=== PATIENT | male | born 1925 | race Caucasian/White ===

== ENCOUNTER 2016-05-03 09:26 | Day surgery (SDC) | payer OTHER, BC ==
[~2016-05-03] VITALS: Ht 185.4 cm; Wt 77.1 kg
[~2016-05-03 09:26] MED LIST: AMLODIPINE BESY10 MG PO; CILOSTAZOL50 MG PO; DIOVAN80 MG PO; DOCUSATE SODIU100 MG PO; ENDOCET 5-3251 EACH PO; FUROSEMIDE40 MG PO; HYDROCODON-ACE1 EAC7 PO; HYDROXYUREA500 MG PO; ISOSORBIDE MONO30 MG PO; LO-DOSE ASPIRIN81 M1 PO; METOPROLOL SUCC25 MG PO; PLETAL100 MG PO; PROMETHAZINE HC25 M1 PO; SSD25GM TP; TYLENOL REGULA325 MG PO; VANCOMYCIN1.25 GM/25 IV; VIBRAMYCIN100 MG PO; VITAMIN B-12500 MC3 PO; XARELTO15 MG PO
== END 2016-05-03 17:25 | disposition home or self-care (01) ==
LOC: CATH 09:26 → EDBD 11:00 → CATH 17:25
DX: I70.248 Atherosclerosis of native arteries of left leg with ulceration of other part of lower leg (principal); L97.829 Non-pressure chronic ulcer of other part of left lower leg with unspecified severity; I70.92 Chronic total occlusion of artery of the extremities; I10 Essential (primary) hypertension; M19.90 Unspecified osteoarthritis, unspecified site; I25.10 Atherosclerotic heart disease of native coronary artery without angina pectoris
CPT/HCPCS: C1725; C1760; C1769; C1874; C1887; C1894; J1200; J1644; J2250; J3010; S0020

== ENCOUNTER 2016-05-19 07:01 | Observation (INO) | payer OTHER, BC ==
[2016-05-19] VITALS (10 sets, daily range): BP systolic 141–170; BP diastolic 62–75
[~2016-05-19] VITALS: Ht 185.4 cm; Wt 73.0 kg
[~2016-05-19 07:01] MED LIST changes: +BACTRIM,SEPT1 TABLET PO; +CYANOCOBALAM1000 MCG PO; +TOPROL XL25 MG PO
[2016-05-19 09:56] LABS: METH RESISTANT S AUREUS PCR NEGATIVE (NEGATIVE)
[2016-05-19 09:58] LABS: PROBE CHECK PASS; SPECIMEN PROCESSING CONTROL PASS
[2016-05-19 12:55] LABS: HEMATOCRIT 28.2 % (38.0-50.0); MCH 26.8 PG (29.0-34.0); MCHC 29.8 G/DL (30.0-36.0); MCV 90.1 FL (86-99); MEAN PLAT.VOLUME 9.2 uM^3 (9.0-12.4); RBC DIS.WIDTH-CV 15.3 % (11.8-14.6); RBC DIS.WIDTH-SD 50.1 % (39-53); RED BLOOD COUNT 3.13 M/uL (4.00-5.50); WHITE BLOOD COUNT 13.7 K/uL (4.1-10.2)
[2016-05-19 13:07] LABS: PLATELET COUNT 257 K/uL (156-360)
[2016-05-19 13:44] LABS: TROP-I INTERPRETATION NEGATIVE; TROPONIN-I 0.02 ng/mL (0.0-0.30)
[2016-05-19 13:48] LABS: ANION GAP 9 MEQ/L (2-14); CHLORIDE 103 MEQ/L (99-109); GFR ESTIMATE (CALCULATED) 55 mL/min/; GLUCOSE 109 mg/dL (70-99); POTASSIUM 4.4 MEQ/L (3.7-5.4); SAMPLE HEMOLYSIS CHECK 0; SAMPLE ICTERIC CHECK 0; SAMPLE LIPEMIA CHECK 0; SODIUM 137 MEQ/L (136-147); UREA NITROGEN (BUN) 29 mg/dL (9-23)
[2016-05-19 17:12] LABS: METH RESISTANT S AUREUS PCR POSITIVE (NEGATIVE)
[2016-05-19 17:30] LABS: PROBE CHECK PASS
[2016-05-20] VITALS: BP 128/56
[2016-05-20 02:00] VITALS: BP 129/57
[2016-05-20 04:00] VITALS: BP 146/59
[2016-05-20 05:32] LABS: TROP-I INTERPRETATION NEGATIVE; TROPONIN-I 0.03 ng/mL (0.0-0.30)
[2016-05-20 05:36] LABS: HEMATOCRIT 28.1 % (38.0-50.0); MCH 27.1 PG (29.0-34.0); MCHC 29.9 G/DL (30.0-36.0); MCV 90.6 FL (86-99); MEAN PLAT.VOLUME 9.5 uM^3 (9.0-12.4); PLATELET COUNT 257 K/uL (156-360); RBC DIS.WIDTH-CV 15.4 % (11.8-14.6); RBC DIS.WIDTH-SD 50.7 % (39-53); WHITE BLOOD COUNT 12.3 K/uL (4.1-10.2)
[2016-05-20 05:57] LABS: ANION GAP 9 MEQ/L (2-14); CHLORIDE 102 MEQ/L (99-109); GFR ESTIMATE (CALCULATED) 51 mL/min/; GLUCOSE 92 mg/dL (70-99); POTASSIUM 4.5 MEQ/L (3.7-5.4); SAMPLE HEMOLYSIS CHECK 0; SAMPLE ICTERIC CHECK 0; SAMPLE LIPEMIA CHECK 0; SODIUM 137 MEQ/L (136-147); UREA NITROGEN (BUN) 27 mg/dL (9-23)
[2016-05-20 08:00] VITALS: BP 148/68
[2016-05-20 12:00] VITALS: BP 150/59
== END 2016-05-20 14:20 | disposition home or self-care (01) ==
LOC: 2SOUTH 07:01 → 4WEST 07:01 → 2SOUTH 11:06 → 4WEST 15:09 → 2SOUTH 15:32 → 4WEST 05-20 14:20
PROVIDERS: Surgery
DX: I70.243 Atherosclerosis of native arteries of left leg with ulceration of ankle (principal); L97.324 Non-pressure chronic ulcer of left ankle with necrosis of bone; I70.211 Atherosclerosis of native arteries of extremities with intermittent claudication, right leg; I89.0 Lymphedema, not elsewhere classified; Z95.820 Peripheral vascular angioplasty status with implants and grafts; I25.10 Atherosclerotic heart disease of native coronary artery without angina pectoris; I25.2 Old myocardial infarction; I10 Essential (primary) hypertension; Z87.891 Personal history of nicotine dependence
CPT/HCPCS: 80048; 84484; 85027; 87641; 93005; C1768; C2628; G0378; G8978 GP CK; G8979 CJ; G8987 GO CM; G8988 GO CJ; J0690; J1644; J2250; J2720; J3010; J7120

== ENCOUNTER 2016-05-22 10:59 | Emergency (ER) | payer OTHER, BC ==
[~2016-05-22] VITALS: Ht 185.4 cm; Wt 77.1 kg
[2016-05-22 12:49] LABS: HEMATOCRIT 27.9 % (38.0-50.0); MCH 26.9 PG (29.0-34.0); MCHC 29.7 G/DL (30.0-36.0); MCV 90.6 FL (86-99); RBC DIS.WIDTH-CV 14.8 % (11.8-14.6); RBC DIS.WIDTH-SD 47.2 % (39-53); RED BLOOD COUNT 3.08 M/uL (4.00-5.50)
[2016-05-22 12:51] LABS: WHITE BLOOD COUNT 16.7 K/uL (4.1-10.2)
[2016-05-22] MEDS ORDERED: PERCOCET 5/31 TABLET PO (12:54)
[2016-05-22 12:57] LABS: CHLORIDE 105 mEq/L (99-109); POTASSIUM 4.6 mEq/L (3.7-5.4); SODIUM 137 mEq/L (136-147)
[2016-05-22 12:58] LABS: GLUCOSE 101 mg/dL (70-99)
[2016-05-22 13:00] LABS: ANION GAP 7 MEQ/L (2-14)
[2016-05-22 13:02] LABS: GFR ESTIMATE (CALCULATED) 38 mL/min/
[2016-05-22 13:03] LABS: UREA NITROGEN (BUN) 30 mg/dL (9-23)
[2016-05-22 13:28] VITALS: BP 143/67
[2016-05-22 13:47] LABS: DELETE MACHINE DIFF? YES
[2016-05-22 13:56] LABS: ABS NEUTROPHIL COUNT 14.83; ANISOCYTOSIS 1+; EOSINOPHIL ABS CT 0.33; MACROCYTES 1+; PLAT.SUFFICIENCY ADEQUATE; PLATELET COUNT UNABLE TO REPORT K/uL (156-360)
== END 2016-05-22 13:29 | disposition home or self-care (01) ==
LOC: EME → EDBD 10:59 → EME 13:29
PROVIDERS: Emergency Medicine
DX: I73.9 Peripheral vascular disease, unspecified (principal); Z87.891 Personal history of nicotine dependence
CPT/HCPCS: 80048; 85025; 93926; 99281; 99284

== ENCOUNTER → 2016-06-15 | Outpatient (CLI) | payer OTHER, BC ==
[~2016-06-15] MED LIST changes: +PERCOCET 5/31 TABLET PO
== END | disposition home or self-care (01) ==
LOC: PICC 08:56
DX: M86.172 Other acute osteomyelitis, left ankle and foot (principal)
CPT/HCPCS: 76937

== ENCOUNTER 2016-11-28 12:25 | Inpatient (IN) | payer OTHER, BC ==
[~2016-11-28] VITALS: Ht 185.4 cm; Wt 77.0 kg
[~2016-11-28 12:25] MED LIST changes: -AMLODIPINE BESY10 MG PO; +AMLODIPINE BESYL5 MG PO
[2016-11-28 13:27] LABS: BASOPHIL COUNT 0.1 K/uL (0-0.1); EOSINOPHIL (%) 1.2 % (0-5); EOSINOPHIL COUNT 0.2 K/uL (0-0.3); HEMATOCRIT 31.1 % (38.0-50.0); IMMATURE GRANULOCYTE (%) 0.7 % (0.0-0.7); IMMATURE GRANULOCYTE COUNT 0.1 K/uL; INSTRUMENT ABS NEUTROPHIL CT 13.8 K/uL; LYMPHOCYTE COUNT 0.9 K/uL (1.0-2.8); MCH 27.5 PG (29.0-34.0); MCHC 29.6 G/DL (30.0-36.0); MCV 93.1 FL (86-99); MEAN PLAT.VOLUME 9.8 uM^3 (9.0-12.4); MONOCYTE COUNT 0.6 K/uL (0-0.8); NEUTROPHIL COUNT 13.8 K/uL (1.8-6.4); PLATELET COUNT 424 K/uL (156-360); RBC DIS.WIDTH-SD 47.7 % (39-53); RED BLOOD COUNT 3.34 M/uL (4.00-5.50); WHITE BLOOD COUNT 15.7 K/uL (4.1-10.2)
[2016-11-28 13:40] LABS: CHLORIDE 104 mEq/L (99-109); SODIUM 137 mEq/L (136-147)
[2016-11-28 13:41] LABS: GLUCOSE 101 mg/dL (70-99)
[2016-11-28 13:43] LABS: ANION GAP 10 MEQ/L (2-14)
[2016-11-28 13:45] LABS: GFR ESTIMATE (CALCULATED) 38 mL/min/
[2016-11-28 13:46] LABS: UREA NITROGEN (BUN) 40 mg/dL (9-23)
[2016-11-28] MEDS ORDERED: HYSEPT TP (17:09)
[2016-11-28] MEDS ORDERED: BACTRIM,SEPT1 TABLET PO (17:10)
[2016-11-28] MEDS ORDERED: SYSTANE GEL10 GM BOTH EYES (17:10)
[2016-11-28] MEDS ORDERED: SYSTANE 0.3-0.1 EACH BOTH EYES (17:10)
[2016-11-28] MEDS ORDERED: COZAAR50 MG PO (17:10)
[2016-11-28] MEDS ORDERED: PLAVIX75 MG PO (17:10)
[2016-11-28 18:01] VITALS: BP 127/60
[2016-11-28 23:48] VITALS: BP 123/64
[2016-11-29 06:41] LABS: HEMATOCRIT 28.6 % (38.0-50.0); MCH 28.7 PG (29.0-34.0); MCHC 30.4 G/DL (30.0-36.0); MCV 94.4 FL (86-99); PLATELET COUNT 384 K/uL (156-360); RED BLOOD COUNT 3.03 M/uL (4.00-5.50); WHITE BLOOD COUNT 12.7 K/uL (4.1-10.2)
[2016-11-29 07:09] LABS: ANION GAP 7 MEQ/L (2-14); CHLORIDE 105 MEQ/L (99-109); GFR ESTIMATE (CALCULATED) 38 mL/min/; GLUCOSE 83 mg/dL (70-99); HDL CHOLESTEROL 51 MG/DL (Desirable>=40); LDL CHOLESTEROL 53 mg/dL (Desirable<100); NON-HDL CHOLESTEROL 64 mg/dL (Desirable<160); SAMPLE HEMOLYSIS CHECK 0; SAMPLE ICTERIC CHECK 0; SAMPLE LIPEMIA CHECK 0; SODIUM 138 MEQ/L (136-147); TOTAL CHOLESTEROL 115 mg/dL (Desirable<200); TRIGLYCERIDES 56 MG/DL (Normal: <150); UREA NITROGEN (BUN) 36 mg/dL (9-23)
[2016-11-29 07:14] LABS: Estimated Average Glucose 111 mg/dL (70-123); HEMOGLOBIN A1c (GLYCOHEMOGLOB) 5.5 % HGB (Below 5.7)
[2016-11-29 07:26] LABS: INTER. NORMALIZED RATIO 1.4; PROTHROMBIN TIME 15.8 SEC (10.2-12.9)
[2016-11-29 07:29] LABS: PTT 32.7 SEC (25-37)
[2016-11-29 07:50] VITALS: BP 131/60
[2016-11-29 12:42] LABS: POINT-OF-CARE METER ID UU14174225
[2016-11-29 15:35] VITALS: BP 121/59
[2016-11-29 20:03] VITALS: BP 117/58
[2016-11-29 21:28] LABS: POINT-OF-CARE METER ID UU13113717
[2016-11-30] VITALS (7 sets, daily range): BP systolic 105–147; BP diastolic 54–71
[2016-11-30 06:22] LABS: HEMATOCRIT 27.8 % (38.0-50.0); MCH 28.8 PG (29.0-34.0); MCHC 30.2 G/DL (30.0-36.0); MCV 95.2 FL (86-99); MEAN PLAT.VOLUME 9.7 uM^3 (9.0-12.4); PLATELET COUNT 419 K/uL (156-360); RBC DIS.WIDTH-SD 49.1 % (39-53); RED BLOOD COUNT 2.92 M/uL (4.00-5.50); WHITE BLOOD COUNT 11.9 K/uL (4.1-10.2)
[2016-11-30 06:47] LABS: ANION GAP 5 MEQ/L (2-14); CHLORIDE 108 MEQ/L (99-109); GFR ESTIMATE (CALCULATED) 43 mL/min/; GLUCOSE 85 mg/dL (70-99); POTASSIUM 4.6 MEQ/L (3.7-5.4); SAMPLE HEMOLYSIS CHECK 0; SAMPLE ICTERIC CHECK 0; SAMPLE LIPEMIA CHECK 0; SODIUM 139 MEQ/L (136-147); UREA NITROGEN (BUN) 27 mg/dL (9-23)
[2016-11-30 12:08] LABS: POINT-OF-CARE METER ID UU14188625
[2016-11-30 17:33] LABS: POINT-OF-CARE METER ID UU14188625
[2016-11-30 21:11] LABS: POINT-OF-CARE METER ID UU14174225
[2016-12-01 03:34] VITALS: BP 149/73
[2016-12-01 08:04] VITALS: BP 134/58
[2016-12-01 11:30] VITALS: BP 138/64
[2016-12-01 18:17] VITALS: BP 152/58
[2016-12-01 19:57] VITALS: BP 130/59
[2016-12-01 23:57] VITALS: BP 128/60
[2016-12-02 03:48] VITALS: BP 139/66
[2016-12-02 08:46] VITALS: BP 168/74
[2016-12-02 09:01] LABS: POINT-OF-CARE METER ID UU14174225
[2016-12-02 12:20] VITALS: BP 112/68
[2016-12-02 16:06] VITALS: BP 110/74
[2016-12-02 19:38] VITALS: BP 128/65
[2016-12-02 23:42] VITALS: BP 182/78
[2016-12-03 03:49] VITALS: BP 174/77
[2016-12-03 06:12] LABS: BASOPHIL COUNT 0.1 K/uL (0-0.1); EOSINOPHIL (%) 5.1 % (0-5); EOSINOPHIL COUNT 0.8 K/uL (0-0.3); HEMATOCRIT 27.1 % (38.0-50.0); IMMATURE GRANULOCYTE (%) 0.6 % (0.0-0.7); IMMATURE GRANULOCYTE COUNT 0.1 K/uL; INSTRUMENT ABS NEUTROPHIL CT 12.5 K/uL; LYMPHOCYTE COUNT 1.2 K/uL (1.0-2.8); MCH 28.1 PG (29.0-34.0); MCHC 28.8 G/DL (30.0-36.0); MCV 97.5 FL (86-99); MEAN PLAT.VOLUME 9.8 uM^3 (9.0-12.4); MONOCYTE (%) 4.5 % (3-12); MONOCYTE COUNT 0.7 K/uL (0-0.8); NEUTROPHIL (%) 81.3 % (45-76); NEUTROPHIL COUNT 12.5 K/uL (1.8-6.4); PLATELET COUNT 447 K/uL (156-360); RBC DIS.WIDTH-SD 49.3 % (39-53); RED BLOOD COUNT 2.78 M/uL (4.00-5.50); WHITE BLOOD COUNT 15.4 K/uL (4.1-10.2)
[2016-12-03 06:59] LABS: ANION GAP 7 MEQ/L (2-14); CHLORIDE 111 MEQ/L (99-109); GFR ESTIMATE (CALCULATED) > 59 mL/min/; GLUCOSE 87 mg/dL (70-99); POTASSIUM 4.2 MEQ/L (3.7-5.4); SAMPLE HEMOLYSIS CHECK 0; SAMPLE ICTERIC CHECK 0; SAMPLE LIPEMIA CHECK 0; SODIUM 140 MEQ/L (136-147); UREA NITROGEN (BUN) 15 mg/dL (9-23)
[2016-12-03 07:36] VITALS: BP 160/74
[2016-12-03 12:10] VITALS: BP 166/72
[2016-12-03 16:35] VITALS: BP 154/70
[2016-12-03 19:48] VITALS: BP 121/73
[2016-12-03 23:31] VITALS: BP 171/73
[2016-12-04 03:41] VITALS: BP 166/80
[2016-12-04 06:34] LABS: BASOPHIL COUNT 0.1 K/uL (0-0.1); EOSINOPHIL (%) 4.1 % (0-5); EOSINOPHIL COUNT 0.7 K/uL (0-0.3); IMMATURE GRANULOCYTE (%) 0.8 % (0.0-0.7); IMMATURE GRANULOCYTE COUNT 0.1 K/uL; INSTRUMENT ABS NEUTROPHIL CT 14.5 K/uL; LYMPHOCYTE COUNT 0.9 K/uL (1.0-2.8); MCH 27.8 PG (29.0-34.0); MCHC 28.9 G/DL (30.0-36.0); MCV 96.2 FL (86-99); MEAN PLAT.VOLUME 9.6 uM^3 (9.0-12.4); MONOCYTE COUNT 0.7 K/uL (0-0.8); NEUTROPHIL (%) 85.8 % (45-76); NEUTROPHIL COUNT 14.5 K/uL (1.8-6.4); PLATELET COUNT 395 K/uL (156-360); RBC DIS.WIDTH-CV 13.8 % (11.8-14.6); RBC DIS.WIDTH-SD 48.7 % (39-53); RED BLOOD COUNT 2.91 M/uL (4.00-5.50); WHITE BLOOD COUNT 16.9 K/uL (4.1-10.2)
[2016-12-04 07:00] LABS: ANION GAP 9 MEQ/L (2-14); CHLORIDE 112 MEQ/L (99-109); GFR ESTIMATE (CALCULATED) > 59 mL/min/; GLUCOSE 88 mg/dL (70-99); SAMPLE HEMOLYSIS CHECK 0; SAMPLE ICTERIC CHECK 0; SAMPLE LIPEMIA CHECK 0; SODIUM 143 MEQ/L (136-147); UREA NITROGEN (BUN) 16 mg/dL (9-23)
[2016-12-04 08:19] VITALS: BP 162/70
[2016-12-04 12:45] VITALS: BP 140/65
[2016-12-04 16:12] VITALS: BP 136/60
[2016-12-04 20:10] VITALS: BP 133/66
[2016-12-04 23:27] VITALS: BP 158/74
[2016-12-05 03:30] VITALS: BP 154/71
[2016-12-05 06:34] LABS: BASOPHIL COUNT 0.1 K/uL (0-0.1); EOSINOPHIL (%) 4.5 % (0-5); EOSINOPHIL COUNT 0.7 K/uL (0-0.3); HEMATOCRIT 25.9 % (38.0-50.0); IMMATURE GRANULOCYTE (%) 0.7 % (0.0-0.7); IMMATURE GRANULOCYTE COUNT 0.1 K/uL; MCH 27.6 PG (29.0-34.0); MCHC 28.6 G/DL (30.0-36.0); MCV 96.6 FL (86-99); MEAN PLAT.VOLUME 9.7 uM^3 (9.0-12.4); MONOCYTE (%) 4.6 % (3-12); MONOCYTE COUNT 0.7 K/uL (0-0.8); NEUTROPHIL (%) 83.3 % (45-76); PLATELET COUNT 368 K/uL (156-360); RBC DIS.WIDTH-CV 13.9 % (11.8-14.6); RBC DIS.WIDTH-SD 49.2 % (39-53); RED BLOOD COUNT 2.68 M/uL (4.00-5.50); WHITE BLOOD COUNT 14.4 K/uL (4.1-10.2)
[2016-12-05 07:12] LABS: ANION GAP 7 MEQ/L (2-14); CHLORIDE 111 MEQ/L (99-109); GFR ESTIMATE (CALCULATED) > 59 mL/min/; GLUCOSE 86 mg/dL (70-99); MAGNESIUM 1.5 mg/dl (1.3-2.7); POTASSIUM 3.8 MEQ/L (3.7-5.4); SAMPLE HEMOLYSIS CHECK 0; SAMPLE ICTERIC CHECK 0; SAMPLE LIPEMIA CHECK 0; SODIUM 141 MEQ/L (136-147); UREA NITROGEN (BUN) 18 mg/dL (9-23)
[2016-12-05 08:18] VITALS: BP 144/58
[2016-12-05 15:40] VITALS: BP 149/69
[2016-12-06] VITALS: BP 160/78
[2016-12-06 06:58] LABS: BASOPHIL COUNT 0.1 K/uL (0-0.1); EOSINOPHIL (%) 4.6 % (0-5); EOSINOPHIL COUNT 0.6 K/uL (0-0.3); IMMATURE GRANULOCYTE (%) 0.8 % (0.0-0.7); IMMATURE GRANULOCYTE COUNT 0.1 K/uL; LYMPHOCYTE COUNT 0.9 K/uL (1.0-2.8); MCH 27.7 PG (29.0-34.0); MCHC 28.8 G/DL (30.0-36.0); MCV 95.9 FL (86-99); MEAN PLAT.VOLUME 9.8 uM^3 (9.0-12.4); MONOCYTE (%) 4.3 % (3-12); MONOCYTE COUNT 0.6 K/uL (0-0.8); NEUTROPHIL (%) 83.3 % (45-76); PLATELET COUNT 377 K/uL (156-360); RBC DIS.WIDTH-SD 49.5 % (39-53); RED BLOOD COUNT 2.71 M/uL (4.00-5.50); WHITE BLOOD COUNT 13.1 K/uL (4.1-10.2)
[2016-12-06 07:21] LABS: ANION GAP 7 MEQ/L (2-14); CHLORIDE 112 MEQ/L (99-109); GFR ESTIMATE (CALCULATED) 55 mL/min/; GLUCOSE 90 mg/dL (70-99); MAGNESIUM 1.5 mg/dl (1.3-2.7); SAMPLE HEMOLYSIS CHECK 0; SAMPLE ICTERIC CHECK 0; SAMPLE LIPEMIA CHECK 0; SODIUM 142 MEQ/L (136-147); UREA NITROGEN (BUN) 18 mg/dL (9-23)
[2016-12-06 08:37] VITALS: BP 144/80
[2016-12-06 10:15] VITALS: BP 144/97
[2016-12-06 10:16] VITALS: BP 159/99; BP 161/98
[2016-12-06 17:51] VITALS: BP 112/58
[2016-12-07 00:12] VITALS: BP 160/78
[2016-12-07 05:57] VITALS: BP 190/83
[2016-12-07 06:38] LABS: EOSINOPHIL (%) 4.3 % (0-5); EOSINOPHIL COUNT 0.5 K/uL (0-0.3); HEMATOCRIT 27.7 % (38.0-50.0); IMMATURE GRANULOCYTE (%) 0.6 % (0.0-0.7); IMMATURE GRANULOCYTE COUNT 0.1 K/uL; INSTRUMENT ABS NEUTROPHIL CT 9.3 K/uL; LYMPHOCYTE COUNT 1.1 K/uL (1.0-2.8); MCH 29.1 PG (29.0-34.0); MCHC 30.3 G/DL (30.0-36.0); MCV 95.8 FL (86-99); MONOCYTE (%) 5.2 % (3-12); MONOCYTE COUNT 0.6 K/uL (0-0.8); NEUTROPHIL (%) 80.2 % (45-76); NEUTROPHIL COUNT 9.3 K/uL (1.8-6.4); PLATELET COUNT 374 K/uL (156-360); RBC DIS.WIDTH-CV 14.1 % (11.8-14.6); RBC DIS.WIDTH-SD 49.6 % (39-53); RED BLOOD COUNT 2.89 M/uL (4.00-5.50); WHITE BLOOD COUNT 11.6 K/uL (4.1-10.2)
[2016-12-07 07:03] LABS: ANION GAP 9 MEQ/L (2-14); CHLORIDE 112 MEQ/L (99-109); GFR ESTIMATE (CALCULATED) 55 mL/min/; GLUCOSE 83 mg/dL (70-99); MAGNESIUM 1.6 mg/dl (1.3-2.7); POTASSIUM 3.9 MEQ/L (3.7-5.4); SAMPLE HEMOLYSIS CHECK 0; SAMPLE ICTERIC CHECK 0; SAMPLE LIPEMIA CHECK 0; SODIUM 143 MEQ/L (136-147); UREA NITROGEN (BUN) 16 mg/dL (9-23)
[2016-12-07 07:46] VITALS: BP 171/83
[2016-12-07] MEDS ORDERED: LEVAQUIN250 MG PO (11:06)
[2016-12-07] MEDS ORDERED: DOXYCYCLINE HY100 MG PO (11:06)
== END 2016-12-07 14:56 | DRG 256 ==
LOC: EME 12:25 → EDOF 16:35 → 5SOUTH 16:35 → ENRESERV 16:40 → 5SOUTH 17:33
PROVIDERS: Emergency Medicine; Hospitalist; Internal Medicine
DX: E11.52 Type 2 diabetes mellitus with diabetic peripheral angiopathy with gangrene (principal); I70.262 Atherosclerosis of native arteries of extremities with gangrene, left leg; L97.529 Non-pressure chronic ulcer of other part of left foot with unspecified severity; L97.329 Non-pressure chronic ulcer of left ankle with unspecified severity; E11.69 Type 2 diabetes mellitus with other specified complication; M86.9 Osteomyelitis, unspecified; L03.116 Cellulitis of left lower limb; B95.62 Methicillin resistant Staphylococcus aureus infection as the cause of diseases classified elsewhere; B96.5 Pseudomonas (aeruginosa) (mallei) (pseudomallei) as the cause of diseases classified elsewhere; D47.3 Essential (hemorrhagic) thrombocythemia; D72.829 Elevated white blood cell count, unspecified; E11.22 Type 2 diabetes mellitus with diabetic chronic kidney disease; I12.9 Hypertensive chronic kidney disease with stage 1 through stage 4 chronic kidney disease, or unspecified chronic kidney disease; N18.9 Chronic kidney disease, unspecified; I48.91 Unspecified atrial fibrillation; D63.8 Anemia in other chronic diseases classified elsewhere; I83.009 Varicose veins of unspecified lower extremity with ulcer of unspecified site; I87.8 Other specified disorders of veins; Z79.01 Long term (current) use of anticoagulants; Z85.828 Personal history of other malignant neoplasm of skin; Z86.14 Personal history of Methicillin resistant Staphylococcus aureus infection; Z87.891 Personal history of nicotine dependence
CPT/HCPCS: 71010; 73630; 73720; 80048; 80061; 80202; 82272; 82948; 83036; 83605; 83735; 85025; 85027; 85610; 85730; 87040; 87070; 87075; 87077; 87147; 87186; 87205; 88305; 88311; 93926; 97530 GO; 97530 GP; 99281; 99285; A6260; J0330; J1170; J1815; J2270; J2405; J2543; J3010; J3370; J7030; J7050

== ENCOUNTER → 2017-05-10 | Outpatient (CLI) | payer MEDICARE, BC ==
[~2017-05-10] MED LIST changes: +COZAAR50 MG PO; +DOXYCYCLINE HY100 MG PO; +HYSEPT TP; +LEVAQUIN250 MG PO; +PLAVIX75 MG PO; +SYSTANE 0.3-0.1 EACH BOTH EYES; +SYSTANE GEL10 GM BOTH EYES
== END | disposition home or self-care (01) ==
LOC: CDC 11:52
DX: Z01.810 Encounter for preprocedural cardiovascular examination (principal); I45.4 Nonspecific intraventricular block; I48.91 Unspecified atrial fibrillation; R94.31 Abnormal electrocardiogram [ECG] [EKG]
CPT/HCPCS: 93000

== ENCOUNTER 2017-05-21 14:58 | Emergency (ER) | payer OTHER, BC ==
[~2017-05-21] VITALS: Ht 185.4 cm; Wt 76.6 kg
[~2017-05-21 14:58] MED LIST changes: -AMLODIPINE BESYL5 MG PO; +NORVASC5 MG PO
[2017-05-21 18:09] VITALS: BP 149/73
[2017-05-31] MEDS ORDERED: OXYCODONE-ACET1 EACH PO (15:26)
== END 2017-05-21 18:14 | disposition home or self-care (01) ==
LOC: EME 14:58
DX: I73.9 Peripheral vascular disease, unspecified (principal); S91.301A Unspecified open wound, right foot, initial encounter; Z98.890 Other specified postprocedural states; I12.9 Hypertensive chronic kidney disease with stage 1 through stage 4 chronic kidney disease, or unspecified chronic kidney disease; N18.9 Chronic kidney disease, unspecified; Z85.828 Personal history of other malignant neoplasm of skin; Z86.14 Personal history of Methicillin resistant Staphylococcus aureus infection; Z87.891 Personal history of nicotine dependence
CPT/HCPCS: 99281; 99284

== ENCOUNTER 2017-06-02 22:07 | Inpatient (IN) | payer OTHER, BC ==
[~2017-06-02] VITALS: Ht 185.4 cm; Wt 79.3 kg
[~2017-06-02 22:07] MED LIST changes: +OXYCODONE-ACET1 EACH PO
[2017-06-03] VITALS (9 sets, daily range): BP systolic 115–143; BP diastolic 57–65
[2017-06-03 13:06] LABS: HEMATOCRIT 32.8 % (38.0-50.0); HEMOGLOBIN 9.5 G/DL (12.5-16.6); MCH 26.8 PG (29.0-34.0); MCV 92.7 FL (86-99); PLATELET COUNT 422 K/uL (156-360); RBC DIS.WIDTH-CV 14.6 % (11.8-14.6); RBC DIS.WIDTH-SD 49.4 % (39-53); RED BLOOD COUNT 3.54 M/uL (4.00-5.50)
[2017-06-03 13:25] LABS: CHLORIDE 101 MEQ/L (99-109); GFR ESTIMATE (CALCULATED) > 59 mL/min/ (58.99-99999); GLUCOSE 104 mg/dL (70-99); SODIUM 135 MEQ/L (136-147); UREA NITROGEN (BUN) 18 mg/dL (9-23)
[2017-06-03 13:39] LABS: INTER. NORMALIZED RATIO 1.9
[2017-06-03 13:42] LABS: PTT 37.4 SEC (25-37)
[2017-06-03 17:24] LABS: HEMOGLOBIN 7.7 G/DL (12.5-16.6); MCH 26.6 PG (29.0-34.0); MCHC 28.5 G/DL (30.0-36.0); MCV 93.1 FL (86-99); RBC DIS.WIDTH-CV 14.6 % (11.8-14.6); RBC DIS.WIDTH-SD 49.1 % (39-53); WHITE BLOOD COUNT 17.4 K/uL (4.1-10.2)
[2017-06-03 17:44] LABS: CHLORIDE 103 MEQ/L (99-109); CREATININE 1.1 MG/DL (0.6-1.3); GFR ESTIMATE (CALCULATED) > 59 mL/min/ (58.99-99999); GLUCOSE 128 mg/dL (70-99); POTASSIUM 4.1 MEQ/L (3.7-5.4); SODIUM 138 MEQ/L (136-147); UREA NITROGEN (BUN) 19 mg/dL (9-23)
[2017-06-03 17:45] LABS: TROP-I INTERPRETATION NEGATIVE; TROPONIN-I 0.01 ng/mL (0.0-0.30)
[2017-06-03 18:12] LABS: HEMATOLOGY COMMENT 1 SN; PLAT.SUFFICIENCY ADEQUATE; PLATELET COUNT 368 K/uL (156-360)
[2017-06-04 04:02] VITALS: BP 167/77
[2017-06-04 06:20] LABS: HEMATOCRIT 30.7 % (38.0-50.0); HEMOGLOBIN 8.9 G/DL (12.5-16.6); MCH 26.6 PG (29.0-34.0); MCV 91.9 FL (86-99); PLATELET COUNT 379 K/uL (156-360); RBC DIS.WIDTH-CV 14.8 % (11.8-14.6); RBC DIS.WIDTH-SD 49.8 % (39-53); RED BLOOD COUNT 3.34 M/uL (4.00-5.50); WHITE BLOOD COUNT 24.1 K/uL (4.1-10.2)
[2017-06-04 06:49] LABS: TROP-I INTERPRETATION NEGATIVE; TROPONIN-I 0.01 ng/mL (0.0-0.30)
[2017-06-04 06:58] LABS: CHLORIDE 103 MEQ/L (99-109); CREATININE 1.1 MG/DL (0.6-1.3); GFR ESTIMATE (CALCULATED) > 59 mL/min/ (58.99-99999); GLUCOSE 144 mg/dL (70-99); SODIUM 137 MEQ/L (136-147); UREA NITROGEN (BUN) 21 mg/dL (9-23)
[2017-06-04 07:00] LABS: POTASSIUM 5.3 MEQ/L (3.7-5.4)
[2017-06-04 07:29] VITALS: BP 128/61
[2017-06-04 12:16] VITALS: BP 138/67
[2017-06-04 13:36] VITALS: BP 122/58
[2017-06-04 15:49] VITALS: BP 128/58
[2017-06-04 20:25] VITALS: BP 115/70
[2017-06-05 00:02] VITALS: BP 130/58
[2017-06-05 04:35] VITALS: BP 115/97
[2017-06-05 07:30] VITALS: BP 152/67
[2017-06-05 19:45] VITALS: BP 109/52
[2017-06-06 06:29] LABS: HEMATOCRIT 25.5 % (38.0-50.0); HEMOGLOBIN 7.6 G/DL (12.5-16.6); MCH 27.6 PG (29.0-34.0); MCHC 29.8 G/DL (30.0-36.0); MCV 92.7 FL (86-99); RBC DIS.WIDTH-CV 14.7 % (11.8-14.6); RBC DIS.WIDTH-SD 49.7 % (39-53); RED BLOOD COUNT 2.75 M/uL (4.00-5.50); WHITE BLOOD COUNT 15.1 K/uL (4.1-10.2)
[2017-06-06 06:58] LABS: CHLORIDE 99 MEQ/L (99-109); CREATININE 1.2 MG/DL (0.6-1.3); GFR ESTIMATE (CALCULATED) > 59 mL/min/ (58.99-99999); GLUCOSE 111 mg/dL (70-99); SODIUM 135 MEQ/L (136-147); UREA NITROGEN (BUN) 18 mg/dL (9-23)
[2017-06-06 07:07] LABS: PLAT.SUFFICIENCY ADEQUATE; PLATELET COUNT 328 K/uL (156-360)
[2017-06-06 07:11] LABS: POTASSIUM 4.1 MEQ/L (3.7-5.4)
[2017-06-06 07:40] VITALS: BP 162/74
[2017-06-06 11:28] VITALS: BP 126/58
[2017-06-06 15:45] VITALS: BP 129/58
[2017-06-06 23:57] VITALS: BP 130/60
[2017-06-07 06:50] VITALS: BP 200/93
[2017-06-07 07:10] VITALS: BP 128/78
[2017-06-07 11:26] VITALS: BP 139/67
[2017-06-07 15:15] VITALS: BP 125/74
[2017-06-07 22:47] VITALS: BP 141/66
[2017-06-08 07:35] VITALS: BP 157/75
[2017-06-08 16:38] VITALS: BP 121/60
[2017-06-08 23:33] VITALS: BP 132/79
[2017-06-09 07:45] VITALS: BP 133/63
== END 2017-06-09 11:20 | disposition home or self-care (01) | DRG 241 ==
LOC: ENRESERV 22:07 → 2SOUTH 06-03 11:34 → ENRESERV 06-03 16:17 → 5EAST 06-03 18:08 → ENPENDDIS 06-09 → EDPENDDISTM 06-09 11:00 → 5EAST 06-09 11:20
PROVIDERS: Surgery; Thoracic Surgery (Cardiothoracic Vascular Surgery)
PROC: 0Y6J0Z1 Detachment at Left Lower Leg, High, Open Approach (ICD-10-PCS; principal; 2017-06-03)
DX: I70.262 Atherosclerosis of native arteries of extremities with gangrene, left leg (principal); I48.91 Unspecified atrial fibrillation; I10 Essential (primary) hypertension; I73.9 Peripheral vascular disease, unspecified; Z87.891 Personal history of nicotine dependence
CPT/HCPCS: 80048; 80048 91; 84484; 85027; 85610; 85730; 86850; 86900; 86901; 86920; 87641; 88307; 90686; 93005; 94799; 97530 GO; 97530 GP; J0690; J1100; J1170; J2405; J3010; J7120; P9016